=== PATIENT | female | born 1990 | race Caucasian/White ===

== ENCOUNTER 2016-09-05 09:50 | Emergency (ER) | payer OTHER ==
[~2016-09-05] VITALS: Ht 162.6 cm; Wt 61.2 kg
[2016-09-05 09:56] VITALS: BP 110/74
[2016-09-05] MEDS ORDERED: DULOXETINE HCL60 MG PO (10:19)
[2016-09-05] MEDS ORDERED: CLONAZEPAM0.5 M2 PO (10:20)
--- NOTE | 2016-09-05 10:24 | ED GENERAL ADULT ---
History of Present Illness General Chief Complaint: General Adult Stated Complaint: SORE THROAT, FEVER, BODY ACHES Source: patient Exam Limitations: no limitations Vital Signs & Intake/Output Vital Signs & Intake/Output Vital Signs Date Time Temp Pulse Resp B/P B/P Pulse O2 O2 Flow FiO2 Mean Ox Delivery Rate 09/05 0956 98.0 130 16 110/74 97 Room Air Allergies Coded Allergies: No Known Allergies (09/05/16) Reconcile Medications Amoxicillin 500 MG TABLET 1 TAB PO TID STREP THROAT Clonazepam 0.5 MG TABLET 0.5-1 TAB PO DAILY PRN ANXIETY (Reported) Duloxetine HCl 60 MG CAPSULE. 2 CAP PO DAILY UNKNOWN (Reported) Triage Note: PT STATES SHE WOKE WITH A SORE THROAT AND NOW SHE HAS A FEVER WITH VOMITING AND HER WHOLE BODY ACHES. Triage Nurses Notes Reviewed? yes : No Patient currently breastfeeds: No HPI: Patient woke up with a fever and sore throat. Patient states that it feels like she is swallowing glass. Pain is constant and is exacerbated with swallowing. There is no radiation of the pain. She rates the pain as 6 out of 10. She denies any difficulty swallowing. She is now getting generalized myalgias and bilateral earaches. The earache is constant. There are no aggravating or mitigating factors. There is no radiation. She rates it as 2 out of 10. Patient states that she was nauseous earlier and vomited once but she is no longer nauseous. Patient took Motrin for her fever. Past History Travel History Traveled to [place] past 21 day No Medical History Any Pertinent Medical History? see below for history Musculoskeletal: ARTHRITIS Surgical History Surgical History: non-contributory Psychosocial History What is your primary language [place] Tobacco Use: Never used ETOH Use: denies use Illicit Drug Use: denies illicit drug use Family History Hx Contributory? No Review of Systems Review of Systems Constitutional: Reports: see HPI, chills, fever. EENTM: Reports: see HPI, ear pain. Respiratory: Reports: no symptoms. Cardiovascular: Reports: no symptoms. GI: Reports: see HPI, nausea. Genitourinary: Reports: no symptoms. Musculoskeletal: Reports: see HPI, muscle pain. Skin: Reports: no symptoms. Neurological/Psychological: Reports: no symptoms. Hematologic/Endocrine: Reports: no symptoms. Immunologic/Allergic: Reports: no symptoms. All Other Systems: Reviewed and Negative Physical Exam Physical Exam General Appearance: well developed/nourished, alert, awake, anxious, moderate distress Head: atraumatic, normal appearance Eyes: Bilateral: PERRL, EOMI. Ears, Nose, Throat: normal ENT inspection, tonsillar swelling Neck: normal inspection, supple, full range of motion, lymphadenopathy (R), lymphadenopathy (L) Respiratory: normal breath sounds, chest non-tender, no respiratory distress, lungs clear Cardiovascular: regular rate/rhythm, normal peripheral pulses Gastrointestinal: normal bowel sounds, soft, non-tender, no organomegaly Back: normal inspection, normal range of motion Extremities: normal inspection, normal capillary refill, normal range of motion, no edema Neurologic/Psych: no motor/sensory deficits, awake, alert, oriented x 3, normal gait, normal mood/affect Skin: intact, normal color, warm/dry Core Measures ACS in differential dx? No CVA/TIA Diagnosis: No Severe Sepsis Present: No Septic Shock Present: No Progress Differential Diagnoses I considered the following diagnoses in my evaluation of the patient: [Strep pharyngitis, mono, bacteremia] Plan of Care: Orders Procedure Date/time Status THROAT CULTURE W/QUICK STREP 09/05 0957 Complete Current Medications Sig/Gordon Start time Last Medication Dose Stop Time Status Admin Amoxicillin 500 MG ONCE ONE 09/05 1030 UNVr (Amoxil) 09/05 1031 Ondansetron HCl 4 MG ONCE ONE 09/05 1030 CANr (Zofran) 09/05 1031 Sodium Chloride 1,000 ML BOLUS ONE 09/05 1030 CANr (Normal Saline 0.9%) 09/05 1129 Laboratory Tests 09/05/16 1024: Total Beta HCG Cancelled, CBC w Diff Cancelled, WBC Cancelled, RBC Cancelled, Hgb Cancelled, Hct Cancelled, MCV Cancelled, MCH Cancelled, RDW Cancelled, Plt Count Cancelled, MPV Cancelled, PUBS MCHC Cancelled, Urine Color Cancelled, Urine Clarity Cancelled, Urine pH Cancelled, Ur Specific [place] Cancelled, Urine Protein Cancelled, Urine Ketones Cancelled, Urine Nitrite Cancelled, Urine Bilirubin Cancelled, Urine Urobilinogen Cancelled, Ur Leukocyte Esterase Cancelled, Ur Microscopic Cancelled, Urine Hemoglobin Cancelled, Urine Glucose Cancelled Initial ED EKG: none Departure Departure Disposition: HOME OR SELF CARE Condition: Stable Clinical Impression Primary Impression: Strep pharyngitis Referrals: PATIENT HAS NO PRIMARY CARE DR (PCP/Family) Additional Instructions: DRINK PLENTY OF FLUIDS TAKE ANTIBIOTICS FOR FULL 10 DAY COURSE RETURN FOR ANY CONCERNS Departure Forms: Customer Survey General Discharge Information Prescriptions: Current Visit Scripts Amoxicillin 1 TAB PO TID #30 TAB Critical Care Note Critical Care Note Critical Care Time: non-applicable
[2016-09-05] MEDS ORDERED: AMOXICILLIN500 M3 PO (10:28)
== END 2016-09-05 10:38 ==
LOC: ERH 09:50
DX: J02.0 Streptococcal pharyngitis (principal); H92.03 Otalgia, bilateral; M79.1 Myalgia